=== PATIENT | female | born 2000 | race Two or more races ===

== ENCOUNTER 2023-05-30 18:11 | Emergency (ER) | payer OTHER ==
[~2023-05-30] VITALS: Ht 152.4 cm; Wt 57.7 kg
[2023-05-30 18:16] VITALS: TEMP 99.4
[2023-05-30 20:21] LABS: APPEARANCE,URINE CLEAR (CLEAR); COLOR,URINE DARK YELLOW (YELLOW); GLUCOSE, URINE (UA) NEGATIVE (NEGATIVE); KETONES,URINE NEGATIVE (NEGATIVE); LEUKOCYTE ESTERASE ,URINE NEGATIVE (NEGATIVE); NITRATE,URINE POSITIVE (NEGATIVE); OCCULT BLOOD,URINE TRACE (NEGATIVE); PH,URINE 7.5 (5.0-8.0); PROTEIN,URINE NEGATIVE (NEGATIVE); SPECIFIC GRAVITIY, URINE 1.009 (1.003-1.030)
[2023-05-30 20:28] LABS: BILIRUBIN,URINE SMALL (NEGATIVE)
[2023-05-30 20:38] VITALS: BP 127/61; PULSE 99; RESP 17
[2023-05-30 20:57] LABS: RBC,URINE None Seen /HPF (0-2)
[2023-05-30 20:58] LABS: SQUAMOUS EPITHELIAL CELL,UR Rare /LPF (None Seen)
[2023-05-30 21:00] LABS: BACTERIA,URINE Moderate /HPF (None Seen)
[2023-05-30] MEDS ORDERED: CEPH-558 PO (21:36)
[2023-05-30] MEDS ORDERED: PHEN-674 PO (21:36)
[2023-05-30] MEDS ORDERED: PHENAZOPYRIDINE HCL 100 MG TABLET PO ONE (21:45)
[2023-05-30] MEDS ORDERED: CEPHALEXIN MONOHYDRATE 500 MG CAPSULE PO ONE (21:45)
== END 2023-05-30 22:06 | disposition home or self-care (01) ==
LOC: EMS 18:13
DX: N39.0 Urinary tract infection, site not specified (principal)
CPT/HCPCS: 81001; 87086; 87186; 99283